=== PATIENT | male | born 1985 | race Caucasian/White ===

== ENCOUNTER 2019-03-12 05:00 | Day surgery (SDC) | payer OTHER ==
[~2019-03-12 05:00] MED LIST: FLOVENT DISKU100 MCG IH; LOSARTAN-HCTZ1 EAC1 PO; VENTOLIN HFA18 GM IH
[2019-03-12] MEDS ORDERED: KETO10TA2 PO (08:58)
[2019-03-12] MEDS ORDERED: PERCOCET 5-3251 EACH PO (08:58)
== END 2019-03-12 14:45 | disposition home or self-care (01) ==
LOC: CIR.AMB 05:00
DX: K60.1 Chronic anal fissure (principal); K60.3 Anal fistula